=== PATIENT | male | born 1970 | race Caucasian/White ===

== ENCOUNTER 2023-04-04 00:33 | Emergency (ER) | payer OTHER ==
[~2023-04-04] VITALS: Ht 180.3 cm; Wt 97.7 kg
[2023-04-04 00:41] VITALS: TEMP 98
[2023-04-04 00:52] LABS: COLLECTION METHOD CLEAN CATCH
[2023-04-04 01:09] LABS: PH 6.5 (5.0-8.5); URINE APPEARANCE Clear (CLEAR/HAZY); URINE BLOOD Negative (NEGATIVE); URINE COLOR Yellow (YELLOW); URINE GLUCOSE Negative (NEGATIVE); URINE KETONE Negative (NEGATIVE); URINE NITRATE Negative (NEGATIVE); URINE PROTEIN(semi-quant) Negative (NEGATIVE); URINE UROBILINOGEN 0.2 E.U/dL (0.2-1.0)
[2023-04-04 01:10] LABS: MUCOUS Present (NOT PRESENT); SQUAMOUS EPITHELIAL 0-2 /hpf (0-10); URINE BACTERIA Occasional /hpf (NONE SEEN); URINE RBC 0-2 /hpf (0-2)
[2023-04-04 01:14] LABS: BASO % 0.4 % (0.0-2.0); EOS # 0.2 K/mm3 (0.0-0.7); EOS % 3.1 % (0.0-4.0); GRAN # 3.7 K/mm3 (1.4-6.5); GRAN % 50.2 % (42.2-75.2); HEMOGLOBIN 13.6 g/dl (13.5-18.0); LYMPH # 2.6 K/mm3 (1.2-3.4); LYMPH % 34.7 % (20.0-51.0); MEAN CELL VOLUME 88 fl (80.0-100.0); MEAN CORPUSCULAR HEMOGLOBIN 29 pg (27-31); MEAN CORPUSCULAR HGB CONC 33 g/dl (33.0-37.0); MONO # 0.8 K/mm3 (0.1-0.6); MONO % 11.3 % (1.7-9.3); PLATELET COUNT 388 K/mm3 (130-400); RED BLOOD COUNT 4.64 M/mm3 (4.20-5.60); REDCELL DISTRIBUTION WIDTH-CV 13.2 % (11.5-14.5)
[2023-04-04] MEDS ORDERED: NS 1,000 ML IV ONE (01:15)
[2023-04-04] MEDS ORDERED: Morphine 4 MG/ML VIAL IV ONE (01:15)
[2023-04-04] MEDS ORDERED: Ondansetron 4 MG/2 ML VIAL IV ONE (01:15)
[2023-04-04 01:39] LABS: ALBUMIN 3.9 gm/dL (3.5-5.0); BILIRUBIN,TOTAL 0.5 mg/dL (0.2-1.2); C-REACTIVE PROTEIN 0.48 mg/dL (0.00-0.50); CALCIUM 9.1 mg/dL (8.4-10.2); CREATININE, serum 0.89 mg/dL (0.72-1.25); POTASSIUM 3.8 mmol/L (3.5-4.5)
[2023-04-04] MEDS ORDERED: Iohexol 300 - 100 ML VIAL IV ONE (02:01)
[2023-04-04] MEDS ORDERED: NS 60 ML IV ONE (02:02)
[2023-04-04] MEDS ORDERED: fentaNYL 50 MCG/ML 2 ML VIAL IV ONE (02:30)
[2023-04-04] MEDS ORDERED: Home HYDROcodone/Acetaminophen 5/325 MG #4 TABS/PACK PO ONE (03:00)
[2023-04-04] MEDS ORDERED: NORCO 325 MG-51 TAB PO (03:11)
[2023-04-04] MEDS ORDERED: Home Ondansetron ODT 4 MG #2 ODT/PACK PO ONE (03:15)
[2023-04-04 03:31] VITALS: BP 154/107; PULSE 70
== END 2023-04-04 03:30 | disposition home or self-care (01) ==
LOC: COL.ER 00:33
PROVIDERS: Nurse Practitioner
DX: K52.9 Noninfective gastroenteritis and colitis, unspecified (principal); Z88.6 Allergy status to analgesic agent
CPT/HCPCS: J2270; J2405; J3010; J7030; Q9967